=== PATIENT | female | born 1985 | race African-American/Black ===

== ENCOUNTER → 2018-04-06 10:04 | Outpatient (CLI) | payer MEDICAID, SELFPAY ==
[2018-04-06 11:45] LABS: Hematocrit 36.4 % (37-47); Hemoglobin 11.6 g/dl (12.0-15.0); Mean Corp Hgb Conc 31.9 g/gl (32-36); Mean Corpuscular Hgb 29.5 pg (27.0-32.0); Mean Corpuscular Volume 92.6 fL (81-99); Platelet Count 209 K/mm3 (150-450); RBC Distribution Width CV 14.9 % (11.6-14.6); RBC Distribution Width SD 50.6 fl (35.1-43.9); Red Blood Count 3.93 M/mm3 (4.2-5.4); White Blood Count 5.8 K/mm3 (4.4-11.0)
[2018-04-06 11:47] LABS: Scan Indicated on CBC? Y/N NO
[2018-04-06 12:01] LABS: Vitamin D,25 Hydroxy 17.1 ng/mL (29.95-100.01)
[2018-04-06 12:02] LABS: Thyroid Stim Hormone (TSH) 0.97 uIU/mL (0.358-3.74)
[2018-04-10 10:36] LABS: HPV Reflexed? NOT INDICATED
--- OUTSIDE RECORDS SUMMARY | 2018-05-23 04:11 | XMS RPT_ITS ---
:1985 Author Organization OHIP Care Team Providers Name Role Phone Bijuxeniawindy Shirlene Attending Unavailable Primay Care Physicia, No Primary Care Unavailable ADALGISA CONWAY MD Attending Unavailable DR. KOJO HERNÁNDEZ DO Primary Care Unavailable MACKENZIE BAER Attending Unavailable DR. KOJO HERNÁNDEZ DO Primary Care Unavailable MACKENZIE BAER Attending Unavailable PHYSICIAN, NONE Primary Care Unavailable MACKENZIE BAER Attending Unavailable PHYSICIAN, NONE Primary Care Unavailable PHYSICIAN, NONE Primary Care Unavailable TERESA DANIELLE DO Attending Unavailable Ebenezer Waller Attending Unavailable Neema Jensen Primary Care Unavailable PROBLEMS PROBLEMS DATE TYPE CONDITION / ATTENDING STATUS SOURCE CODE 07/07/2017 Admitting Unknown / Ebenezer Waller Active [facility](Unknown[facility] [place] Repository PROCEDURES PROCEDURES No Procedure Records FoundRESULTS RESULTS PREGU Collected: 05/12/2018 Status: F Source: PAOLI [place] 7:57 AM [facility] REPOSITORY TYPE CODE TESTS RESULT OUT OF RANGE REFERENCE UNITS LAB PREGU(LOIN C) Test Negative Urine LAB PRUG1(LOIN C) Unknown test HCG not (u) int detected. Performed By: #### PREGU #### [address] [address] CBC-COMPLETE BLOOD CNT Collected: 04/06/2018 Status: F Source: CARMEN NO DIFF 10:08 AM [facility] REPOSITORY TYPE CODE TESTS RESULT OUT OF RANGE REFERENCE UNITS LAB L100.1000 4.4-11.0 K/mm3 Normal WBC 5.8 LAB L100.1200 4.2-5.4 M/mm3 Low RBC 3.93 LAB L100.1300 12.0-15.0 g/dl Low HGB 11.6 LAB L100.1400 37-47 % Low HCT 36.4 LAB L100.1500 81-99 fL Normal MCV 92.6 LAB L100.1600 27.0-32.0 pg Normal MCH 29.5 LAB L100.1700 32-36 g/gl Low MCHC 31.9 LAB L100.1810 11.6-14.6 % High RDW CV 14.9 LAB L100.1820 35.1-43.9 fl High RDW SD 50.6 LAB L100.1900 150-450 K/mm3 Normal PLT 209 LAB L100.2000 6.2-12.0 fl Normal MPV 11.0 Performed By: #### L100.0500 #### [facility] [address] [place], [address] VITAMIN D,25 HYDROXY Collected: 04/06/2018 Status: F Source: CARMEN 10:08 AM [facility] REPOSITORY TYPE CODE TESTS RESULT OUT OF REFERENCE UNITS RANGE LAB L506.1000 29.95-100.01 ng/mL Low Vitamin D 17.1 25-OH Result Comment: Vitamin D 25(OH) Status Range Deficiency <20 ng/mL (50nmol/L) Insuffciency 20 - 30 ng/mL (50 - 75 nmol/L) Sufficiency 30 - 100 ng/mL (75 - 250 nmol/L) Toxicity >100 ng/mL (>250 nmol/L) Performed By: #### L506.1000 #### [facility] [address] [place], [address] THYROID STIM HORMONE Collected: 04/06/2018 Status: F Source: CARMEN (TSH) 10:08 AM [facility] REPOSITORY TYPE CODE TESTS RESULT OUT OF RANGE REFERENCE UNITS LAB L501.9520 0.358-3.74 uIU/mL Normal TSH 0.97 Performed By: #### L501.9520 #### [facility] [address] [place], [address] PAP I-G W/RFX HRHPV Collected: 04/06/2018 Status: F Source: CARMEN 10:08 AM [facility] REPOSITORY Order Comment: CYTOLOGY INFORMATION: - CLINICAL INFORMATION: - DATE LMP/MENOPAUSE: 508140 LMP - COLLECTION VIAL: Thin Prep Vial - WHITE METAL CASTER SOURCE: CERVICAL/ENDOCERVICAL - COLLECTION TECHNIQUE: BRUSH/SPATULA Specimen Comment: [id number] Specimen Comment: Source.............Cervix;Endocervix Specimen Comment: LMP / Prev Treat...LAE=[id number] Specimen Comment: No. of containers..01 ThinPrep Vial TYPE CODE TESTS RESULT OUT OF RANGE REFERENCE UNITS LAB L7400.0800 . Normal DIAGN Comment Result Comment: NEGATIVE FOR INTRAEPITHELIAL LESION AND MALIGNANCY. LAB L7400.0900 . Normal ADEQ Comment Result Comment: Satisfactory for evaluation. Endocervical and/or squamous metaplastic cells (endocervical component) are present. LAB L7400.1400 . Normal PERFORM Comment Result Comment: Cydney Harper [employer] LAB L7400.6005 . Normal TEST METHOD Comment Result Comment: This liquid based ThinPrep(R) pap test was screened with the use of an image guided system. LAB L7400.2600 . Normal . COMM LAB L7400.2700 . Normal PAPSMR Comment Result Comment: The Pap smear is a screening test designed to aid in the detection of premalignant and malignant conditions of the uterine cervix. It is not a diagnostic procedure and should not be used as the sole means of detecting cervical cancer. Both false-positive and false-negative reports do occur. LAB L7400.2800 . Normal HPV RFLX Comment Result Comment: The HPV DNA reflex criteria were not met with this specimen result therefore, no HPV testing was performed. Performed at: - [facility] [id number] Measuring Clerk: Komal Wood MD, Phone: [phone] Performed By: #### L7400.0350 #### [facility] (refer to report for specific site) refer to report for address and phone number PREGU Collected: 03/03/2018 Status: F Source: [place] 8:58 AM [facility] REPOSITORY TYPE CODE TESTS RESULT OUT OF RANGE REFERENCE UNITS LAB PREGU(LOIN C) Test Negative Urine LAB PRUG1(LOIN C) Unknown test HCG not (u) int detected. Performed By: #### PREGU #### [address] [address] OR Observed: 07/07/2017 Status: UNK Source: [facility] 6:02 AM [facility] REPOSITORY DATE OF SERVICE: 07/07/2017 PREOPERATIVE DIAGNOSIS: Cosmetic breast enhancement. POSTOPERATIVE DIAGNOSIS: Cosmetic breast enhancement. OPERATION: Bilateral augmentation mammoplasty with 350 mL moderate plus profile silicone gel implants. SURGEON: Ebenezer Waller MD ANESTHESIA: General. INDICATIONS: This woman has elected to undergo the above procedure. She understands the procedures and risks including infection, bleeding, capsular contraction, implant deflation, asymmetry, irregularities, palpability, rippling, issues with mammogram, reoperation rates, ALCL. She is prepared for surgery. PROCEDURE: Before going in the operating room, the patient was marked and plan confirmed. Once in the OR, she underwent general anesthesia, and chest wall was prepped and draped in sterile fashion. Then 5-cm inframammary incisions were marked bilaterally. Her left fold was higher and needed marking of about 1-cm lower to match the opposite side. The incision was made, and a dual- implant subpectoral pocket was developed, releasing the inferior attachments of the pectoralis muscle to the midline. Also did some lower pole scoring to help with the lower pole symmetry. Pocket dissection was then completed to dimensions of the implant. It was irrigated with saline followed by antibacterial solution. Attention was then turned to the right side. Inframammary incision was made. Subpectoral pocket was then developed. Dual-implant was done on the opposite side. It was then irrigated with saline followed with antibacterial solution. Hemostasis was confirmed. Gloves were then changed. Next, the 350 mL moderate plus profile gel implant was then placed bilaterally without difficulty. Patient was then sat upright. Satisfactory position was noted. She was then laid back down. Hemostasis confirmed on both sides. Both incisions were then closed with interrupted 3-0 Monocryl for dermis, stitching to the chest for stabilizing inframammary folds, followed by interrupted 3- 0 Monocryl for the dermis, and subcuticular 4-0 Monocryl. Dressings were applied with Steri-Strips Mastisol. She tolerated procedure. Was put in a bra. Counts were correct. Ebenezer Waller MD [facility] PATIENT NAME: KEYSHAWN RUSSO [facility] Dr[address] MEDICAL REC #: [id number] [place] [address] ADMIT DATE: DISCHARGE DATE: OPERATIVE REPORT ATTENDING PHY: Ebenezer Waller MD [id number] SSI File#: [id number] Verified/Reviewed by 07/26/17 [facility] PATIENT NAME: KEYSHAWN RUSSO [address] [facility] [address] MEDICAL REC #: [id number] [place] [address] ADMIT DATE: DISCHARGE DATE: OPERATIVE REPORT ATTENDING PHY: Ebenezer Waller MD ALLERGIES ALLERGIES DATE TYPE / CODE NAME / CODE REACTION SEVERITY SOURCE 08/23/2014 Drug venom-honey Anaphylaxis Unknown [facility] Allergy/4160 bee/[id number] Hospital 83337(SNOMED 698(RXNORM) Repository CT) ENCOUNTERS ENCOUNTERS ADMIT/DISCHARGE ACCOUNT NUMBER ADMITTING ENCOUNTER LOCATION SOURCE CLASS 05/12/2018/05/12/19 [id number] Ambulatory BBuilding:OS Robert 19 DURoo: Health 0001Bed: E [facility] Repository 04/06/2018 [id number] Ambulatory [facility] ding:WOBLAB Repository 03/03/2018/03/03/20 [id number] Emergency BBuilding:ER Robert 18 [facility] Repository 03/03/2018/03/03/20 [id number] Ambulatory BBuilding:OS Robert 18 DURoom: Health 0001Bed: E [facility] Repository 02/21/2018/02/22/20 [id number] Ambulatory ROBERT Robert [address] [place] [address] ding:OPRS [facility] Repository 02/06/2018/02/07/20 [id number] Ambulatory [address] ding:RAD [facility] Repository 07/07/2017 [id number] Inpatient [facility] Repository ng:VALORIE PAYERS PAYERS ENCOUNTER GUARANTOR PAYER SUBSCRIBER SOURCE 05/12/2018 KEYSHAWN ALLENB: Primary KEYSHAWN L ERBDOB: [facility] S Insurance:[facility] [id number] [facility] [place] Repository [place] [address]Bxd: Number[facility] [place] [id number]: (330) (HP)Tel: (330) Date:2018-04-26 [phone] (WP) [id number] (HP)Tel: (330) Name:[phone] () [address] [place] [address]QS: 04/06/2018 KEYSHAWN [id number] S Primary Insurance:[facility] KEYSHAWN ERBDOB: [facility] [id number] [facility] [place] [address]Vcz: Number: [facility] [id number] Repository (HP) Date:[id number] [address]IX: 04/06/2018 Secondary NOT GIVENUNK [place] Insurance:SELF PAY [facility] Number: Effective Repository Date:2018-04-06 03/03/2018 KEYSHAWN L ERBDOB: Primary KEYSHAWN L ERBDOB: [facility] S Insurance:[employer] [id number] [facility] [place] Repository [place] [address]Cex: Number: [facility] [place] [id number] [id number]: (330) (HP)Tel: (330) Date:[phone] (WP) [id number] (HP)Tel: (330) Name:[facility] [phone] () [address] [place] [address]: 03/03/2018 KEYSHAWN L ERBDOB: Primary KEYSHAWN L ERBDOB: [facility] S Insurance:[employer] [id number] [facility] [place] Repository [place] [address]Pod: Number: [place] [id number] [id number]: ([phone]) (WP) Date:2018-02-13 [phone] (WP) [id number] Name:ZOFIA Boyer [address] [place] [address]MY: 02/21/2018 KEYSHAWN L ERBDOB: Primary KEYSHAWN L ERBDOB: [facility] S Insurance:[employer] [id number] [facility] [place] Repository [place] [address]Htm: Number: [place] [id number] [id number]: (000) (WP) Date:2018-02-13 [phone] (WP) [id number] Name:[facility] Rosalind [address] [place] [address]: 02/06/2018 KEYSHAWN L ERBDOB: Primary KEYSHAWN L ERBDOB: [place] [employer] S Insurance:[employer] [id number] [facility] [place] Rep[facility] [place] [address]Esx: Number: [place] [id number] [id number]: (330) (WP) Date:2018-01-23 [phone] (WP) [id number] Name:ZOFIA Boyer [address] [place] [address]BP: 07/07/2017 PACKAGE ABRAM Primary KEYSHAWN [facility] [id number] Insurance:[facility] [place] Number: Repository [place] [id number] [id number]: (330) Date: [phone] () [place], [place] [address]EL:
== END ==
PROVIDERS: Visit Provider Obstetrics & Gynecology
DX: N95.1 Menopausal and female climacteric states (principal); F32.9 Major depressive disorder, single episode, unspecified; Z12.4 Encounter for screening for malignant neoplasm of cervix
CPT/HCPCS: 36415; 82306; 84443; 85027; 88175; G0145

== ENCOUNTER → 2019-01-23 | Outpatient (CLI) | payer MEDICAID, SELFPAY ==
[2019-01-23 11:00] LABS: Hematocrit 36.8 % (37-47); Hemoglobin 11.8 g/dL (12.0-15.0); Mean Corp Hgb Conc 32.1 g/dL (32-36); Mean Corpuscular Hgb 30.8 pg (27.0-32.0); Mean Corpuscular Volume 96.1 fL (81-99); Mean Platelet Vol. 10.4 fl (6.2-12.0); Platelet Count 197 K/mm3 (150-450); RBC Distribution Width CV 13.8 % (11.6-14.6); Red Blood Count 3.83 M/mm3 (4.2-5.4); White Blood Count 3.4 K/mm3 (4.4-11.0)
[2019-01-23 11:19] LABS: Thyroid Stim Hormone (TSH) 0.97 uIU/mL (0.358-3.74)
== END | disposition home or self-care (01) ==
LOC: WOBLAB 08:59
PROVIDERS: Visit Provider Obstetrics & Gynecology
DX: N92.4 Excessive bleeding in the premenopausal period (principal)
CPT/HCPCS: 36415; 84443; 85027

== ENCOUNTER 2019-02-26 05:46 | Day surgery (SDC) | payer MEDICAID, SELFPAY ==
[2019-02-21 17:08] LABS: Hemoglobin 12.7 g/dL (12.0-15.0); Mean Corp Hgb Conc 32.6 g/dL (32-36); Mean Corpuscular Hgb 31.1 pg (27.0-32.0); Mean Corpuscular Volume 95.6 fL (81-99); Mean Platelet Vol. 10.7 fl (6.2-12.0); Platelet Count 214 K/mm3 (150-450); RBC Distribution Width CV 14.2 % (11.6-14.6); RBC Distribution Width SD 50.1 fl (35.1-43.9); Red Blood Count 4.08 M/mm3 (4.2-5.4); White Blood Count 9.6 K/mm3 (4.4-11.0)
[2019-02-21 17:21] LABS: International Normalized Ratio 1.1; Prothrombin Time (Protime)PT. 14.1 SECONDS (11.7-14.9)
[2019-02-21 17:38] LABS: Anion Gap 7 (5-15); BUN 9 mg/dL (7-18); BUN/Creat Ratio 9.2 RATIO (10-20); Calcium,Total 8.8 mg/dL (8.5-10.1); Chloride 104 mmol/L (98-107); Creatinine, Serum 0.98 mg/dL (0.55-1.02); EST Glomerular Filtration Rate 69 mL/min (>60); Est Glom Filt Rate - Afr Amer 83 mL/min (>60); Glucose 68 mg/dL (74-106); Potassium 3.6 mmol/L (3.5-5.1); Sodium Level 140 mmol/L (136-145)
--- NOTE | 2019-02-25 18:02 | HP.PCM_ITS ---
History and Physical Date of Admission: 02/26/19 Surgical History and Physical Pau Mixon, a 33 year old female 3 0 0 0 3, presents for [facility] on February 26, 2019 at 9:30. -- Pelvic Pain, Dyspareunia, Hydrosalpinx, Menoirrhagia, Fibroids -- Had a tuballigation for her contraception. PT is having trouble with painful intercourse. Menses is irregular and heavy with lots of clotting. Pt is having pain on and off in pelvic area. Pt has been having constant pelvic pain, pain with IC, and heavy periods. Pelvic pain which began about 6 months ago. Pau claims it started with missed period and has been present continuous, not improving. It is located in the midlower abdomen. Severity is worsening; Associated signs and symptoms are heavy periods, passing large clots. Has been on multiple medical options including IUD, OCP, etc without help. Prior C- section x 3. MEDICATIONS HISTORY: Current medications prescribed by our practice are: 1. Vitamin D3 2,000 unit capsule, 1 po daily Patient is also takin. metoprolol succinate ER 25 mg tablet,extended release 24 hr 2. Cymbalta 30 mg capsule,delayed release, One pill by mouth once a day ALLERGIES: NKDA, No Known Drug Allergies, Bee Pollen and Anaphylaxis Infections - Chicken pox and Chlamydia Illnesses - depression Accidents - A/A 2007 back and neck injury Hospitalizations - see surgery and Childbirth Hx Smoking; Review of Systems: GENERAL - Denies fever, or chills SKIN - Denies skin changes EYES - Denies visual changes EARS - Denies difficulty hearing NOSE - Denies nasal congestion or bleeding MOUTH - Denies sore throat or difficulty swallowing NECK - Denies pain or swelling RESPIRATORY - Denies shortness of breath or wheezing CARDIOVASCULAR - Denies palpitations or chest pain GASTROINTESTINAL - Denies nausea, vomiting, diarrhea, constipation GENITOURINARY - Denies dysuria, frequency of urination, incontinence of urine MUSCULOSKELETAL - Denies joint or muscle pain NEUROLOGICAL - Denies localized numbness or weakness PSYCHIATRIC - Denies depression or anxiety ENDOCRINE - Denies heat or cold intolerance, weight loss or gain HEMATO-IMMUNOLOGIC - Denies excesive bleeding with cuts SOCIAL HISTORY: Alcohol Use - denies drinking Smoking - social smoker but quit spring 2013 Diet - moderate, balanced diet and caffeine < 2 drinks per day Lifestyle - Exercise - minimal Seat Belt Use - always 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 Mother: G6PD, MVP. Father: Hypercholesterolemia and Hypertension. Paternal Grandmother: and Ovarian cancer. Paternal Grandfather: and Colon Cancer. MENSTRUAL HISTORY: LMP Known?- DefiniteAmount/Duration - 6 days, Regularity - Irregular, Frequency - 28 days, LMP - 02/12/19, Age Onset Menarche - 8 PAST PREGNANCIES: Total Pregnancies - 3; Full Term Pregnancies - 3; Premature - 0; Abortions, Induced - 0; Abortions, Spontaneous - 0; Ectopics - 0; Multiple Births - 0; Living Children - 3 SURGICAL HISTORY: 1. 08/23/2014 /BTO ; Shirlene Emmanuel M.D. - 2. tonsils ; - 3. 11/25/2010 C section ; Shirlene Emmanuel M.D. - CPD. Failure to progress 4. 02/23/2018 bunionectomy ; - 5. 06/23/2017 breast augmentation ; - 6. 12/16/2011 repeat ; Shirlene Emmanuel M.D. - 7. 02/28/2012 cholecystectomy ; Dr. Giles - PHYSICAL EXAM BP- 112/74 Sitting, Right arm, regular cuff Weight- 142.09525 lbs Height- 69 inch BMI:21.01 CONSTITUTIONAL - NAD, well nourished, and well developed HEENT - Normocephalic, PERRLA, EOMI NECK - no nuchal rigidity EXTREMITIES - No edema or calf tenderness NEUROLOGICAL - Cranial nerves II-XII grossly intact PSYCHIATRIC - A and O to time, place, person, mood and affect PAP SMEAR - deferred and 2020 External Genitial Vagina - non-tender without lesions Urethra/Urethral Meatus - non-tender Bladder - non-tender Vagina - no palpable lesions Cervix - no CMT Uterus - painful on bimanual exam Adnexa - no masses and Painful on bimanual exam ASSESSMENT/PLAN: 1. Excessive Bleeding In The Premenopausal Period, Irregular Menstruation and Unspecified Differential diagnosis of pelvic pain reviewed. and TSH and CBC ok. Chronic pain in lower abdomen with pain when not bleeding also, in last 6 months States large clots and heavy, irregular periods. Pelvic ultrasound with small fibroid noted. otherwise normal uterus. Bilateral hydrosalpinges noted. Declined trial of medical management. Declines Dx laparoscopy. Prefers to proceed with hysterectomy. robotic assisted vaginal hysterectomy and Bilateral salpingectomy planned. Discussed R,B,A of surgery and discussed anticipated course. 2. Unspecified Dyspareunia Reviewed diff diagnosis. No vaginal deliveries, and now in 30s Pain on exam and manipulation of uterus. Pelvic sono with small fibroid. Suspect adenomyosis given exam. Declines trial of medical management. Prefers hysterectomy Plan robotic assisted vaginal hysteretomy and bilateral salpingectomy. Ovaries to remain in place if WNL. Offered and declined dx laparoscopy and prefers definitive surgical management.
[2019-02-26] VITALS (16 sets, daily range): BP systolic 93–138; BP diastolic 57–85; PULSE 62–97; RESP 16–20; TEMP 36.3–36.9; O2SAT 97–100; BMI 22.1
[2019-02-26 06:14] LABS: Internal QC Validated? YES +Cl - CLEAR BKGD; Pregnancy, Urine Negative Negative
[2019-02-26] MEDS: Lactated Ringers 1,000 ML 100 ML IV ×3 (07:12→11:31)
--- NOTE | 2019-02-26 07:30 | HYST_PTH ---
PATIENT: KEYSHAWN RUSSO LOC: [facility] U#:[id number] AGE/SX: 33/F ROOM: RE02/26/[address]: Dr. Surinder Kaur MD : 1985 BED: DIS: 02/27/2019 SPEC #: [id number] RECD: 02/26/19 13:58 STATUS: CHARLES REFani #: [id number] ANTONI: 02/26/19 07:[address]: Surinder Kaur DEPT: SURGICAL PATHOLOGY RECD BY: Oscar Hamilton ENTERED: 02/26/19 14:19 SP TYPE: HYSTERECT OTHR DR: MD Dr. Amanda Madrid DO Tissues: Uterus, NOS Procedures: Surgery Specimen Level V HEADER OPERATION: Lap robotic hysterectomy bilateral salpingectomy PRE-OP DIAGNOSIS: Excessive bleeding in the premenopausal period, irregular menstruation, unspecified dyspareunia TISSUE SUBMITTED: Uterus, bilateral fallopian tubes MICROSCOPIC DIAGNOSIS Uterus and bilateral fallopian tubes, hysterectomy and bilateral salpingectomy: Cervix - mild chronic inflammation. Endometrium - proliferative endometrium. Myometrium - no pathologic diagnosis. Bilateral fallopian tubes - focal hematosalpinx, proximal portion of bilateral fallopian tubes. SJ:be 02/27/19 MICROSCOPIC DESCRIPTION Slides are reviewed. GROSS DESCRIPTION Received in fixative is one container labeled with the patient's name and designated uterus, bilateral fallopian tubes. The specimen consists of a hysterectomy specimen consisting of uterus with cervix and attached bilateral fallopian tubes. The uterus with cervix weighs 109 gm and measures 10.5 x 6 x 4.5 cm. The serosal surface is maier, glistening. The ectocervical mucosa is unremarkable. The external os is circular in contour. The endocervical canal measures 4 cm in length and the endocervical mucosa is maier, glistening and unremarkable. The triangular endometrial cavity measures 5 cm in length and up to 3.5 cm in width. The endometrium is maier, glistening without any mass lesion and measures 0.1 cm in thickness. The endometrium appears to be denuded in multiple areas. Sections of the uterine wall do not reveal any mass lesion and it measures up to 2.5 cm in thickness. The right fallopian tube measures 9 cm in length and 0.6 cm in diameter. The fimbrial end is identified. The proximal portion of the fallopian tube shows a Filshie clip which appears intact. The proximal portion of the fallopian tube also reveals a minimally dilated lumen filled with blood. Sections reveal unremarkable cut surfaces. The left fallopian is similar appearance to tight and measures 8 cm in length and up to 0.6 cm in diameter. The proximal portion of the fallopian tube also shows dilated which measures 0.5 cm in diameter and is filled with bloody fluid. The proximal portion also shows a Filshie clip which appears intact. Sections reveal unremarkable cut surfaces. Courtesy Car Driver sections are submitted in eight cassettes as follows: 1??anterior cervix, 2 - posterior cervix, 3 & 4 - anterior uterine wall, 5 & 6 - posterior uterine wall, 7 - right fallopian tube, 8 - left fallopian tube. / WILSON:rg 02/26/19 TC:5 CPT: 22349
--- NOTE | 2019-02-26 07:34 | PCM.OPRPT ---
Report of Operation Date of Procedure: 02/26/19 Pre-Operative Diagnosis: Pelvic Pain, Menorrhagia, Bilateral Hydrosalpinx, Uterine Fibroids Post-Operative Diagnosis: Pelvic Pain, Menorrhagia, Bilateral Hydrosalpinx, Uterine Fibroids, Adhesions Surgery/Procedure Performed:: Robotic Assisted Vaginal Hysterectomy and Bilateral Salpingectomy, Lysis of Adhesions Description of Surgical Findings:: 8 cm uterus with normal-appearing ovaries, bilateral hydrosalpinx, dense adhesions of left fallopian tube and ovary to left anterior sidewall. Evidence of prior tubal ligation with Filshie clips. Evidence of prior C-sections in the area of the bladder flap. sample book maker: Jeremy Alicea Type of Anesthesia:: General - Endotracheal Anesthesiologist: Joann Brambila Drains: Patel to straight drain Estimated Blood Loss (mL): 50 cc Fluids Replaced: Crystalloid Description of Procedure: Surgeon: Surinder Kaur MD, FACOG Indication: This is a 33 year old patient who has been having problems with pelvic pain and menorrhagia. Conservative measures have not been helpful. The patient has been counseled regarding the risks, benefits and alternatives of this procedure including the possibility of bleeding, infection, and injury to surrounding structures such as bowel bladder and all questions were answered. She understands that if BSO is needed that she will need to be on HRT for an indefinite period of time. Procedure: Pt taken to the operating room where, after induction of general anesthesia, the patient was prepped and draped in the usual sterile fashion and placed on a non-slip Huggy-u-vac device. Trendelenburg test was satisfactory. Bladder was drained of urine with a Patel catheter which was left in place. Anterior cervix grasped and cervix was dilated to about 3-4 mm. Uterus sounded to 9 cms. 0-Vicryl suture was placed at the 3:00 and 9:00 position of the cervix. A small Advincula Noodle Catalyst Maker Uterine Manipulator was then placed in the uterus and attention was turned to the laparoscopic portion of the procedure. Ropivocaine 0.5% was injected approximately 2-3 cm superior to the umbilicus and an 8 mm robotic camera port was introduced directly with intraperitoneal placement confirmed with CO2 insufflation. 8 mm robotic side ports were introduced under direct visualization approximately 9 cm lateral and 2 cm inferior to the umbilical port. A 5 mm left upper quadrant port was introduced and airseal insufflation with CO2 was started. The above findings were noted. Robot was docked without difficulty and attention turned to the robotic portion of the procedure. Approximately a 25 cc of Ropivicaine was used. Bilateral mesosalpinx were ligated with 35 dinero bipolar coagulation to the level of the round ligament after taking adhesions down between the left ovary and anterior abdominal wall and fallopian tube on the left and left pelvic sidewall. The posterior aspect of the cervix was identified and then opened for about 1 cm using 25 watt monopolar cautery. Bladder flap showed evidence of prior sections and was opened and divided to the level of the round ligaments using monopolar cautery. Progressive bites were then ligated on each side of the cervix with 35 dinero bipolar cautery to the uterine arteries. The anterior vaginal mucosa was entered and cervix circumscribed with monopolar cautery. Uterus and attached tubes were removed through the vagina. Vaginal cuff was closed first with 0-Vicryl Adiel stitches placed at each angle followed by closure of the mid-cuff with 0-Monocryl V-lock suture in two layers. It was necessary to place an extra 0 Vicryl interrupted suture in the right angle to help with hemostasis of the right angle before the Monocryl suture was placed. Pelvis was copiously irrigated with saline. Ana was placed to help with postoperative hemostasis due to some oozing. Hemostasis was noted. Robot was undocked and trocars were removed with as much gas as possible. Incisions were closed with 4-0 Monocryl subcuticular sutures and incisions covered with steri-strips. The patient tolerated the procedure well and was taken to the recovery room in satisfactory condition. Sponge, instruments and needle counts were all correct. There were no apparent complications of the surgery. Cefotan 2 gms IV was given prior to the procedure. Grafts/Implants Used: None - Complications None - Admit VTE Documentation VTE Present on Admission: Yes VTE Mechan Device Prophylaxis: SCD's VTE Pharm Prophylaxis ordered?: Yes
--- NOTE | 2019-02-26 07:37 | DCINST_ITS ---
Discharge Diet: No Restrictions Discharge Activity: Return to Normal Activity, May Not Drive - while taking narcotic pain medications., May Shower, May Take a Tub Bath May resume sexual activity in: 6-8 weeks Call your doctor if your incision/area has: Continuous Slow Oozing, Sudden Inc reased Bleeding, Increased Pain/ Swelling, Increased Redness, Foul Smelling Discharge Call your doctor if you observe: Fever of 101 or Higher, Inability to urinate, Inability to have a bowel movement, Using more than one pad per hour Allergies/Adverse Reactions: Allergies venom-honey bee [bee venom (honey bee)] Allergy (Verified 02/26/19 06:12) Anaphylaxis Medications to take at Discharge Cholecalciferol (Vitamin D3) [Vitamin D3] 5,000 unit PO DAILY 02/19/19 Duloxetine Hcl [Cymbalta] 30 mg PO DAILY 02/19/19 Metoprolol Tartrate [Lopressor (Beta Andrew)] 25 mg PO DAILY PRN 02/19/19 Multivitamin with Minerals [Multiple Vitamin] 1 ea PO DAILY 02/19/19 Docusate Sodium [Colace] 100 mg PO BID PRN PRN #60 cap 02/26/19 Oxycodone [Oxyir] 5 mg PO Q6H PRN PRN 7 Days #20 tab 02/26/19 The following prescriptions were given: Docusate Sodium [Colace] 100 mg PO BID PRN PRN #60 cap PRN Reason: Constipation Prescription Printed Oxycodone [Oxyir] 5 mg PO Q6H PRN PRN 7 Days #20 tab PRN Reason: Pain Score 6-10/10 Prescription Printed Primary Care Physician: Amanda Sanderson DO [Primary Care Provider] - Test Results: Test results from this visit will be discussed in further detail at your follow- up appointment, if applicable. Please Follow Up With: Surinder Kaur MD When: 2 to 3 weeks
[2019-02-26] MEDS: Dextrose 5%-Lactated Ringers 1,000 ML 150 ML IV ×2 (12:42→21:48)
[2019-02-26] MEDS: HYDROmorphone 0.5 MG/0.5 ML SYRINGE IV (14:20)
[2019-02-26] MEDS: 0.9% Saline Lock 10 ML Syringe IV (14:21)
[2019-02-26] MEDS: DULoxetine Hcl 30 MG Capsule PO (15:18)
[2019-02-26] MEDS: Ketorolac 30 MG/ML Syringe IV ×2 (16:20→21:48)
[2019-02-26] MEDS: Enoxaparin 30 MG/0.3 ML Syringe SC (17:54)
[2019-02-26] MEDS: oxyCODONE 5 MG Tablet PO (19:58)
[2019-02-27] MEDS: Ketorolac 30 MG/ML Syringe IV ×2 (04:14→09:59)
[2019-02-27 06:46] LABS: Hematocrit 30.3 % (37-47); Hemoglobin 10.1 g/dL (12.0-15.0); Mean Corp Hgb Conc 33.3 g/dL (32-36); Mean Corpuscular Hgb 31.5 pg (27.0-32.0); Mean Corpuscular Volume 94.4 fL (81-99); Mean Platelet Vol. 10.5 fl (6.2-12.0); Platelet Count 153 K/mm3 (150-450); RBC Distribution Width CV 14.1 % (11.6-14.6); RBC Distribution Width SD 48.7 fl (35.1-43.9); Red Blood Count 3.21 M/mm3 (4.2-5.4); White Blood Count 9.3 K/mm3 (4.4-11.0)
[2019-02-27] MEDS: oxyCODONE 5 MG Tablet PO ×2 (06:51→12:39)
[2019-02-27 06:57] VITALS: BP 119/83; PULSE 78; RESP 20; TEMP 37; O2SAT 100
[2019-02-27 07:07] LABS: Creatinine, Serum 0.99 mg/dL (0.55-1.02); EST Glomerular Filtration Rate 68 mL/min (>60); Est Glom Filt Rate - Afr Amer 83 mL/min (>60); Estimated Creatinine Clearance 77.86 ml/min
--- NOTE | 2019-02-27 08:55 | PN.OBGYN_ITS ---
Subjective: Patient without complaints. Tolerating diet well. Positive flatus. Patel catheter still in. Minimal pain. Ready to go home today. - Physical Exam Vitals/I&O's: Vital Signs Temp Pulse Resp BP Pulse Ox 98.6 F 78 20 H 119/83 H 100 02/27/19 06:57 02/27/19 06:57 02/27/19 06:57 02/27/19 06:57 02/27/19 06:57 Oxygen Delivery Method Room Air Weight: 141 lb 8.588 oz Body Mass Index (BMI) 22.1 Intake and Output for Last 24 Hours 02/25/19 02/26/19 02/27/19 23:59 23:59 23:59 Intake Total 6170.83 / 6170.83 Output Total 925 / 925 450 / 450 Balance 5245.83 / 5245.83 -450 / -450 Comment: Wounds clean, dry, intact. Good urine output. Hemoglobin and creatinine OK Laboratory Results 02/27/19 06:20: WBC 9.3, RBC 3.21 L, Hgb 10.1 L, Hct 30.3 L, MCV 94.4, MCH 31.5, MCHC 33.3, RDW Std Deviation 48.7 H, RDW Coeff of Davey 14.1, Plt Count 153, MPV 10.5 02/27/19 06:20: Creatinine 0.99, Estim Creat Clear Calc 77.86, Est GFR (MDRD) Af Amer 83, Est GFR (MDRD) Non-Af 68 Current Medications Acetaminophen (Tylenol) 1,000 mg PO Q8H PRN PRN PRN Reason: Pain Score 1-3/10 or Fever Docusate Sodium (Colace) 100 mg PO BID PRN PRN PRN Reason: Constipation Duloxetine HCl (Cymbalta) 30 mg PO DAILY [facility] Last Admin: 02/26/19 15:18 Dose: 30 mg Documented by: Hydromorphone HCl (Dilaudid Inj) 0.5 mg IV Q3H PRN PRN PRN Reason: Pain Score 4-10/10 Last Admin: 02/26/19 14:20 Dose: 0.5 mg Documented by: Dextrose/Lactated Ringer's () 1,000 mls @ 150 mls/hr IV .Q6H40M [facility] Last Admin: 02/26/19 21:48 Dose: 150 mls/hr Documented by: Sodium Chloride () 250 mls @ 15 mls/hr IV .[id number] PRN PRN Reason: Saline Flush Ketorolac Tromethamine (Toradol) 30 mg IV Q6H [facility] Stop: 03/03/19 16:01 Last Admin: 02/27/19 04:14 Dose: 30 mg Documented by: Metoprolol Tartrate (Lopressor (Beta Andrew)) 25 mg PO DAILY PRN PRN Reason: chest discomfort Ondansetron HCl (Zofran) 4 mg IV Q4H PRN PRN PRN Reason: NAUSEA Oxycodone HCl (Oxyir) 5 mg PO Q4H PRN PRN PRN Reason: Pain Score 4-10/10 Last Admin: 02/27/19 06:51 Dose: 5 mg Documented by: Simethicone (Mylicon) 80 mg PO [facility] Last Admin: 02/26/19 21:48 Dose: 80 mg Documented by: Sodium Chloride () 10 - 40 ml IV UD PRN PRN Reason: SALINE FLUSH Last Admin: 02/26/19 14:21 Dose: 10 ml Documented by: Medical Necessity - Tobacco Use Smoking Status: Never smoker Tobacco Use: Non-smoker Assessment/Plan Doing well postoperative day #1 status post robotic assisted vaginal hysterectomy with bilateral salpingectomy and lysis of adhesions. WILL release to home with routine instructions.
[2019-02-27] MEDS: DULoxetine Hcl 30 MG Capsule PO (09:59)
[2019-02-27 10:00] VITALS: BP 123/66; PULSE 86; RESP 18; TEMP 36.7; O2SAT 96
--- NOTE | 2019-02-27 11:37 | NURSING ---
pt has ordered lunch, drinking plenty of fluids, has no urdge to void yet, hat in toilet, f/c removed between [id number] monitor
--- NOTE | 2019-02-27 15:58 | NURSING ---
Patient voided approximately 100mls of concentrated yellow urine into the specimen hat. Patient reported no difficulties with voiding and said that according to primary RN she was able to be discharged after voiding. Spoke to Reema primary RN who confirmed that discharge instructions had already been provided. Patient stated that she had already taken care of her prescriptions and would like to leave a little before 1300. Notified volunteer desk to escort patient out at around 1245. No further needs at this time
== END 2019-02-27 12:53 | disposition home or self-care (01) ==
LOC: SDC 05:46 → AC 05:49 → MS3 02-27 09:57
PROVIDERS: Anesthesiology; Referring Provider Obstetrics & Gynecology; Visit Provider Obstetrics & Gynecology
PROC: 0UT90ZZ Resection of Uterus, Open Approach (ICD-10-PCS; CPT 58552; principal; 2019-02-26 07:10)
DX: N72 Inflammatory disease of cervix uteri (principal); N83.6 Hematosalpinx; F32.9 Major depressive disorder, single episode, unspecified; D64.9 Anemia, unspecified; F41.9 Anxiety disorder, unspecified; I34.1 Nonrheumatic mitral (valve) prolapse; Z87.891 Personal history of nicotine dependence; Z79.899 Other long term (current) drug therapy
CPT/HCPCS: 00840; 58552; 58660; 36415; 80048; 81025; 82565; 85027; 85610; 85730; 86850; 86900; 86901; 88307; 93005; J7040; J7120; A4216; J2405

== ENCOUNTER → 2020-11-20 14:19 | Outpatient (CLI) | payer MEDICAID, SELFPAY ==
[2020-11-20 13:34] VITALS: BMI 22.1
[2020-11-20 15:45] LABS: Free T3 2.4 pg/mL (2.18-3.98); T4 Free Direct 0.74 ng/dL (0.76-1.46); Thyroid Stim Hormone (TSH) 0.73 uIU/mL (0.358-3.74)
== END ==
PROVIDERS: Referring Provider Internal Medicine Endocrinology, Diabetes & Metabolism; Visit Provider Internal Medicine Endocrinology, Diabetes & Metabolism
DX: E06.3 Autoimmune thyroiditis (principal)
CPT/HCPCS: 36415; 84439; 84443; 84481